=== PATIENT | female | born 1985 | race Caucasian/White ===

== ENCOUNTER 2016-10-07 16:41 | Emergency (ER) | payer OTHER ==
[2016-10-07 17:03] VITALS: BP 136/85; O2SAT 97
[2016-10-07 17:17] VITALS: TEMP 98.2
[2016-10-07] MEDS ORDERED: CLINDAMYCIN HCL CAP 150 MG CAP PO ONE (17:22)
--- NOTE | 2016-10-07 17:25 | ED.PDOC ---
History of Present Illness - General Chief Complaint: Skin/Abrasion/Tear Stated Complaint: Right 3rd digit fingertip with small abscess and red streaking up the arm Time Seen by Provider: 10/07/16 17:12 Source: patient, RN notes reviewed, Vital Signs reviewed Exam Limitations: no limitations - History of Present Illness Timing/Duration: 24 hours Severity: moderate Improving Factors: immobilization Worsening Factors: movement Associated Symptoms: other - denies fever/chills Allergies/Adverse Reactions: Allergies NO KNOWN ALLERGY Allergy (Verified 03/22/16 16:17) Home Medications: Ambulatory Orders Clindamycin HCl 300 mg PO QID #40 cap 10/07/16 Glyburide 2.5 mg PO DAILY 10/07/16 Glyburide 10 mg PO BEDTIME 10/07/16 Metformin HCl 1,750 mg PO DAILY 10/07/16 Metformin HCl 500 mg PO QAM 10/07/16 glyBURIDE [Diabeta] 5 mg PO QAM 10/07/16 Review of Systems - Review of Systems Constitutional: States: no symptoms reported EENTM: States: no symptoms reported Respiratory: States: no symptoms reported Cardiology: States: no symptoms reported Gastrointestinal/Abdominal: States: no symptoms reported Genitourinary: States: no symptoms reported Musculoskeletal: States: see HPI Skin: States: see HPI Neurological: States: no symptoms reported Endocrine: States: see HPI - Gestational Diabetes Hematologic/Lymphatic: States: no symptoms reported Past Medical History (General) - Patient Medical History Hx Seizures: No Hx Stroke: No Hx Asthma: No Hx of COPD: No Hx Cardiac Disorders: No Hx Congestive Heart Failure: No Hx Pacemaker: No Hx Hypertension: No Hx Diabetes: Yes Hx Gastroesophageal Reflux: No Hx Hepatitis C: No Hx MRSA: No Surgical History: other - Vaccination History Hx Influenza Vaccination: No Hx Pneumococcal Vaccination: No - Social History Hx Tobacco Use: Yes Hx Alcohol Use: No Hx Substance Use: No Hx Physical Abuse: No Hx Emotional Abuse: No - Female History Patient : Yes Family Medical History - Family History Mother Living Status: Cause of : liver disease - non-fatty liver Physical Exam - Physical Exam General Appearance: Alert, Comfortable, No apparent distress, Well Developed, Well Groomed, Well Hydrated, Well Nourished, Other - Eye Exam: bilateral normal Ears, Nose, Throat: hearing grossly normal, normal ENT inspection Neck: non-tender, full range of motion, supple, normal inspection Respiratory: no respiratory distress, no accessory muscle use Cardiovascular/Chest: normal peripheral pulses, regular rate, rhythm Gastrointestinal/Abdominal: non tender, soft Back Exam: normal inspection Extremity: normal range of motion, non-tender Neurologic: protection analyst II-XII nml as tested, no motor/sensory deficits, alert, normal mood/affect, oriented x 3 Skin Exam: other - small abscess with minimal surrounding erythema consistent with cellulitis and lymphangitic spread originating distal right 3rd digit medial aspect (fingertip) Lymphatic: other - lymphatic erythema from right 3rd digit spreading proximally to mid upper arm. Progress - Progress Progress: 10/07/16 17:27 Patient with signs and symptoms consistent with a small abscess of the right 3rd digit medial/distal aspect (fingertip) and lymphangitis associated with this. I suspect MRSA and will treat with Clindamycin, heat, and elevation for now. No fever and the abscess is too small to puncture at this time. Patient advised to f/u with OB provider if unimproved in 3 to 5 days or return to ER sooner if condition worsens. Departure - Departure Clinical Impression: Acute lymphangitis of right upper extremity, Cutaneous abscess of right hand Time of Disposition: 17:40 Disposition: Discharge to Home or Self Care Condition: Good Departure Forms: ED Discharge - Pt. Copy, Patient Portal Self Enrollment Instructions: DI for Lymphangitis-Adult Referrals: Tulio Elena MD [Primary Care Provider] - 1-2 Weeks Prescriptions: Clindamycin HCl 300 mg PO QID #40 cap Home Medications: Ambulatory Orders Clindamycin HCl 300 mg PO QID #40 cap 10/07/16 Glyburide 2.5 mg PO DAILY 10/07/16 Glyburide 10 mg PO BEDTIME 10/07/16 Metformin HCl 1,750 mg PO DAILY 10/07/16 Metformin HCl 500 mg PO QAM 10/07/16 glyBURIDE [Diabeta] 5 mg PO QAM 10/07/16 Additional Instructions: Warm compress and elevation of right finger/hand above the level of your heart for 10 minutes, 3 to 4 times a day. Take antibiotics as prescribed. Follow-up with OB if not improving in 3 to 5 days. Return to ER if condition worsens - fever, worse redness/swelling/pain.
== END 2016-10-07 17:37 | disposition home or self-care (01) ==
LOC: ER 16:41
DX: L02.511 Cutaneous abscess of right hand (principal); L03.123 Acute lymphangitis of right upper limb; E11.9 Type 2 diabetes mellitus without complications; Z87.891 Personal history of nicotine dependence

== ENCOUNTER → 2016-10-13 | Outpatient (CLI) | payer OTHER ==
--- NOTE | 2016-10-17 09:22 | RAD ---
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 Articular surfaces of the hand and visualized wrist are normal. There are no lytic or sclerotic lesions. There is no radiopaque foreign body. There is no subcutaneous gas. Impression: Negative exam of the right hand. Electronically signed by: Nate Beth MD 10/17/2016 9:23 AM CDT
== END | disposition home or self-care (01) ==
LOC: RAD 16:54
PROVIDERS: ATTEND Obstetrics & Gynecology
DX: M60.241 Foreign body granuloma of soft tissue, not elsewhere classified, right hand (principal)

== ENCOUNTER 2017-03-25 20:58 | Emergency (ER) | payer SELFPAY ==
[2017-03-25 21:37] VITALS: TEMP 98.5; O2SAT 97
--- NOTE | 2017-03-25 22:02 | RAD ---
EXAM DESCRIPTION: Foot,Left 3 Views CLINICAL HISTORY: left heel pain COMPARISON: None FINDINGS: 3 views were submitted. There is a small plantar calcaneal spur. No fracture or dislocation is identified. Bone marrow attenuation is unremarkable. No radiopaque foreign body is identified. IMPRESSION: No acute fracture or dislocation. Electronically signed by: Jw Finch 03/25/2017 10:01 PM [facility]
--- NOTE | 2017-03-25 22:27 | ED.PDOC ---
History of Present Illness - General Chief Complaint: Lower Extremity Injury Stated Complaint: left foot pain Time Seen by Provider: 03/25/17 21:52 Source: patient, RN notes reviewed, Vital Signs reviewed Exam Limitations: no limitations - History of Present Illness Initial Comments: Patient comes in with c/o L foot pain. Reports she tripped walking into work today and felt something pop in her left foot when she landed on it to catch herself. Pain worsened tonight when she took her shoe off. Pain in on the sole of her foot, heel and arch. Pain is worse with weight bearing. No numbness or tingling. Occurred: this afternoon Pain - Lower Extremity: moderate: Left Foot Method of Injury: other - tripped Improving Factors: rest Worsening Factors: movement Allergies/Adverse Reactions: Allergies NO KNOWN ALLERGY Allergy (Verified 03/22/16 16:17) Home Medications: Ambulatory Orders Clindamycin HCl 300 mg PO QID #40 cap 10/07/16 Glyburide 2.5 mg PO DAILY 10/07/16 Glyburide 10 mg PO BEDTIME 10/07/16 Metformin HCl 1,750 mg PO DAILY 10/07/16 Metformin HCl 500 mg PO QAM 10/07/16 glyBURIDE [Diabeta] 5 mg PO QAM 10/07/16 Review of Systems - Review of Systems Constitutional: States: no symptoms reported Respiratory: States: no symptoms reported Cardiology: States: no symptoms reported Musculoskeletal: States: see HPI Skin: States: no symptoms reported Neurological: States: no symptoms reported All other Systems: No Change from Baseline Past Medical History (General) - Patient Medical History Hx Seizures: No Hx Stroke: No Hx Asthma: No Hx of COPD: No Hx Cardiac Disorders: No Hx Congestive Heart Failure: No Hx Pacemaker: No Hx Hypertension: No Hx Diabetes: Yes Hx Gastroesophageal Reflux: No Hx Hepatitis C: No Hx MRSA: No - Vaccination History Hx Influenza Vaccination: No Hx Pneumococcal Vaccination: No - Social History Hx Tobacco Use: Yes Hx Alcohol Use: No Hx Substance Use: No Hx Physical Abuse: No Hx Emotional Abuse: No - Female History Patient : No Expected Date of Delivery:: 11/18/16 Family Medical History - Family History Mother Living Status: Cause of : liver disease - non-fatty liver Physical Exam - Physical Exam General Appearance: Alert, Comfortable, No apparent distress, Well Developed, Well Groomed, Well Hydrated, Well Nourished Cardiovascular/Respiratory: normal peripheral pulses Ankle: normal inspection, non-tender, no evidence of injury, normal ROM Foot: limited ROM - due to pain, soft tissue tenderness - L foot arch and heel, swelling - sole of foot Neuro/Tendon: normal sensation, normal motor functions, normal tendon functions , responds to pain, no evidence tendon injury Mental Status: alert, oriented x 3 Skin: normal color, warm/dry Comments: Vital Signs 03/25/17 21:34 Temperature 98.5 F Pulse Rate [ 92 H Right] Respiratory 18 Rate Blood Pressure 128/71 [Left Arm] O2 Sat by Pulse 97 Oximetry Progress - EKG/XRAY/CT XRAY: Foot: No fracture or dislocation per Radiologist Departure - Departure Clinical Impression: Sprain of left ankle or foot Ruptured plantar fascia Qualifiers: Encounter type: initial encounter Laterality: left Qualified Code(s): S96.812A - Strain of other specified muscles and tendons at ankle and foot level, left foot, initial encounter Time of Disposition: 22:30 Disposition: Discharge to Home or Self Care Condition: Fair Departure Forms: ED Discharge - Pt. Copy, Patient Portal Self Enrollment Instructions: DI for Foot Pain Diet: resume usual diet Referrals: Tulio Elena MD [Primary Care Provider] - 1-5 Days Zev Chaves MD [Active Staff] - 1-2 Weeks Home Medications: Ambulatory Orders Clindamycin HCl 300 mg PO QID #40 cap 10/07/16 Glyburide 2.5 mg PO DAILY 10/07/16 Glyburide 10 mg PO BEDTIME 10/07/16 Metformin HCl 1,750 mg PO DAILY 10/07/16 Metformin HCl 500 mg PO QAM 10/07/16 glyBURIDE [Diabeta] 5 mg PO QAM 10/07/16 Additional Instructions: Wear boot for at least 5-7 days
[2017-03-25 23:02] VITALS: BP 122/78
== END 2017-03-25 23:03 | disposition home or self-care (01) ==
LOC: ER 20:58
DX: S93.402A Sprain of unspecified ligament of left ankle, initial encounter (principal); S96.812A Strain of other specified muscles and tendons at ankle and foot level, left foot, initial encounter; E11.9 Type 2 diabetes mellitus without complications; Z87.891 Personal history of nicotine dependence; W18.40XA Slipping, tripping and stumbling without falling, unspecified, initial encounter; Y92.89 Other specified places as the place of occurrence of the external cause; Y99.0 Civilian activity done for income or pay

== ENCOUNTER 2017-10-13 08:16 | Emergency (ER) | payer OTHER ==
--- NOTE | 2017-10-13 08:32 | ED.PDOC ---
History of Present Illness - General Chief Complaint: Skin/Abrasion/Tear Stated Complaint: painful red blister finger /hand right Time Seen by Provider: 10/13/17 08:32 Source: patient Exam Limitations: no limitations - History of Present Illness Initial Comments: Reyna Wiggins 32 y/o female stated that had developed painful blisters right hand /middle finger 3 days ago,no fever or chillsHad same skin lesion last year which went away with acyclovir. Timing/Duration: other - see hpi Severity: moderate Location: hands - right Worsening Factors: nothing Associated Symptoms: blisters Allergies/Adverse Reactions: Allergies Levofloxacin [From Levaquin] Allergy (Verified 10/13/17 08:34) Other Causes eyes to swell Home Medications: Ambulatory Orders Metformin HCl 500 mg PO QAM 10/07/16 Acyclovir [Zovirax] 800 mg PO TID 7 Days #20 tab 10/13/17 Azithromycin [Zithromax Z-Carmine] 1 ea PO DAILY #1 pack 10/13/17 Review of Systems - Review of Systems Constitutional: States: no symptoms reported EENTM: States: no symptoms reported Skin: States: see HPI Neurological: States: no symptoms reported All other Systems: Reviewed and Negative, No Change from Baseline Past Medical History (General) - Patient Medical History Hx Seizures: No Hx Stroke: No Hx Asthma: No Hx of COPD: No Hx Cardiac Disorders: No Hx Congestive Heart Failure: No Hx Pacemaker: No Hx Hypertension: No Hx Diabetes: Yes Hx Gastroesophageal Reflux: No Hx Hepatitis C: No Hx MRSA: No Surgical History: other - btl - Vaccination History Hx Influenza Vaccination: No Hx Pneumococcal Vaccination: No - Social History Hx Tobacco Use: Yes Hx Alcohol Use: No Hx Substance Use: No Hx Physical Abuse: No Hx Emotional Abuse: No - Female History Patient : No Expected Date of Delivery:: 10/13/17 Family Medical History - Family History Mother Living Status: Cause of : liver disease - non-fatty liver Physical Exam - Physical Exam General Appearance: Alert, Comfortable, No apparent distress Eyes, Ears, Nose, Throat Exam: normal ENT inspection Neck: supple Cardiovascular/Chest: regular rate, rhythm, no murmur Respiratory: lungs clear, normal breath sounds Gastrointestinal/Abdominal: non tender, soft Back Exam: no CVA tenderness Extremity: no pedal edema, no calf tenderness Neurologic: alert, oriented x 3 Skin Exam: warm/dry, normal color Skin Problem Location: other - hand right middle finger right Skin Character: other - vesicular erythematous eruption right middle finger Progress - Progress Progress: 10/13/17 09:04 Vital Signs - 8 hr 10/13/17 08:27 Temperature 98.0 F Pulse Rate [ 87 Left Radial] Respiratory 20 Rate Blood Pressure 116/82 [Left Arm] O2 Sat by Pulse 98 Oximetry Departure - Departure 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 Copy, Patient Portal Self Enrollment Referrals: Tulio Elena MD [Primary Care Provider] - 1-2 Weeks Prescriptions: Acyclovir [Zovirax] 800 mg PO TID 7 Days #20 tab Azithromycin [Zithromax Z-Carmine] 1 ea PO DAILY #1 pack Home Medications: Ambulatory Orders Metformin HCl 500 mg PO QAM 10/07/16 Acyclovir [Zovirax] 800 mg PO TID 7 Days #20 tab 10/13/17 Azithromycin [Zithromax Z-Carmine] 1 ea PO DAILY #1 pack 10/13/17 Additional Instructions: Take Acyclovir 3 x a day;follow up with primary Md 16 Oct 2017 as needed
[2017-10-13 09:00] VITALS: TEMP 98
[2017-10-13] MEDS ORDERED: TETANUS,DIPHTHERIA,PERTUSSIS 1 EA SYG IM ONE (09:02)
[2017-10-13 09:20] VITALS: BP 113/84; O2SAT 96
== END 2017-10-13 09:23 | disposition home or self-care (01) ==
LOC: ER 08:16
DX: B00.9 Herpesviral infection, unspecified (principal); E11.9 Type 2 diabetes mellitus without complications; Z87.891 Personal history of nicotine dependence; Z23 Encounter for immunization

== ENCOUNTER 2018-07-20 18:42 | Emergency (ER) | payer SELFPAY ==
[2018-07-20] MEDS ORDERED: KETOROLAC TROMETHAMINE INJ 60 MG/2 ML VIAL IM ONE (19:01)
[2018-07-20] MEDS ORDERED: HYDROcodone 5MG/APAP 325MG 1 EA TAB PO ONE (19:01)
[2018-07-20 19:02] VITALS: TEMP 99.4
--- NOTE | 2018-07-20 19:04 | ED.PDOC ---
History of Present Illness - General Chief Complaint: General Stated Complaint: migraine x4 days post flu Time Seen by Provider: 07/20/18 19:00 Source: patient Exam Limitations: no limitations - History of Present Illness Initial Comments: SHE WAS RECENTLY DIAGNOSED WITH INFLUENZA A. NOW SHE IS HERE WITH AN OCCIPITAL HEADACHE AND A SEVERE SORE THROAT. DENIES ANY FEVER, OR VOMITING. DENIES VISUAL DISTURBANCES. Timing/Duration: other - FOUR DAYS Severity: moderate Improving Factors: nothing Worsening Factors: nothing Associated Symptoms: headaches, malaise, other - SORE THROAT Allergies/Adverse Reactions: Allergies Levofloxacin [From Levaquin] Allergy (Verified 10/13/17 08:34) Other Causes eyes to swell Home Medications: Ambulatory Orders Metformin HCl 500 mg PO QAM 10/07/16 Acetaminophen W/ Codeine [Tylenol W/ CODEINE #3] 1 ea PO Q6HRS #15 07/20/18 Review of Systems - Review of Systems Constitutional: States: malaise, weakness EENTM: States: throat pain Respiratory: States: no symptoms reported Cardiology: States: no symptoms reported Gastrointestinal/Abdominal: States: no symptoms reported Genitourinary: States: no symptoms reported Musculoskeletal: States: no symptoms reported Skin: States: no symptoms reported Neurological: States: headache Endocrine: States: no symptoms reported Hematologic/Lymphatic: States: no symptoms reported Past Medical History (General) - Patient Medical History Hx Seizures: No Hx Stroke: No Hx Asthma: No Hx of COPD: No Hx Cardiac Disorders: No Hx Congestive Heart Failure: No Hx Pacemaker: No Hx Hypertension: No Hx Diabetes: Yes Hx Gastroesophageal Reflux: No Hx Hepatitis C: No Hx MRSA: No Surgical History: other - Vaccination History Hx Influenza Vaccination: No Hx Pneumococcal Vaccination: No - Social History Hx Tobacco Use: Yes Hx Alcohol Use: No Hx Substance Use: No Hx Physical Abuse: No Hx Emotional Abuse: No - Female History Patient is a Female of Child Bearing Age (10 -59 yrs old): Yes Patient : No Expected Date of Delivery:: 10/13/17 Family Medical History - Family History Mother Living Status: Cause of : liver disease - non-fatty liver Physical Exam - Physical Exam General Appearance: Alert, Well Developed, Well Groomed, Well Hydrated Eye Exam: bilateral normal Ears, Nose, Throat: normal ENT inspection, pharyngeal erythema Neck: non-tender, full range of motion, supple Respiratory: chest non-tender, lungs clear, normal breath sounds Cardiovascular/Chest: regular rate, rhythm, no edema, no gallop, no JVD Peripheral Pulses: radial,right: 2+, radial,left: 2+ Gastrointestinal/Abdominal: normal bowel sounds, non tender, soft, no organomegaly, no pulsatile mass Rectal Exam: deferred Neurologic: alert, oriented x 3 Skin Exam: normal color Progress - Results/Orders Results/Orders: 07/20/18 19:03 STREP A SCREEN CULTURE Stat Laboratory Results Group A Strep Rapid Negative (NEGATIVE) 07/20/18 19:03 Departure - Departure Clinical Impression: Acute viral pharyngitis, Headache Time of Disposition: 19:49 Disposition: Discharge to Home or Self Care Condition: Good Departure Forms: ED Discharge - Pt. Copy, Patient Portal Self Enrollment Diet: resume usual diet Activity: increase activity as tolerated Referrals: Tulio Elena MD [Primary Care Provider] - 1-2 Weeks Prescriptions: Acetaminophen W/ Codeine [Tylenol W/ CODEINE #3] 1 ea PO Q6HRS #15 Home Medications: Ambulatory Orders Metformin HCl 500 mg PO QAM 10/07/16 Acetaminophen W/ Codeine [Tylenol W/ CODEINE #3] 1 ea PO Q6HRS #15 07/20/18
[2018-07-20 20:01] VITALS: BP 133/79; O2SAT 96
== END 2018-07-20 20:06 | disposition home or self-care (01) ==
LOC: ER 18:42
DX: R51 Headache (principal); J06.9 Acute upper respiratory infection, unspecified; E11.9 Type 2 diabetes mellitus without complications; Z87.891 Personal history of nicotine dependence; Z79.84 Long term (current) use of oral hypoglycemic drugs; Z88.1 Allergy status to other antibiotic agents
CPT/HCPCS: 87070; 87880; J1885

== ENCOUNTER 2019-10-17 10:34 | Emergency (ER) | payer SELFPAY ==
[2019-10-17] MEDS ORDERED: SODIUM CHLORIDE 0.9% (FLUSH) 10 ML SYG IV PRN (10:50)
[2019-10-17] MEDS ORDERED: ONDANSETRON INJ 4 MG/2 ML VIAL IV ONE (10:53)
[2019-10-17] MEDS ORDERED: KETOROLAC TROMETHAMINE INJ 30 MG/ML VIAL IV ONE (10:53)
--- NOTE | 2019-10-17 11:19 | ED.PDOC ---
History of Present Illness - General Chief Complaint: Problem Stated Complaint: spotting,discharge,low back pain Time Seen by Provider: 10/17/19 10:43 Source: patient, RN notes reviewed, Vital Signs reviewed - History of Present Illness Initial Comments: This is a 34-year-old female presenting to the emergency department with low back pain and pelvic pain onset 4 days ago. She reports some associated vomiting 2 days ago, but states this is completely disappeared. She also reports vaginal bleeding and vaginal discharge. 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 LMP 2 weeks ago. Denies possibility of . History of BTL. Allergies/Adverse Reactions: Allergies Levofloxacin [From Levaquin] Allergy (Verified 10/13/17 08:34) Other Causes eyes to swell Home Medications: Ambulatory Orders Acetaminophen W/ Codeine [Tylenol W/ CODEINE #3] 1 - 2 tablet PO Q6H PRN #20 10/17/19 Ondansetron Odt [Zofran ODT] 8 mg PO Q8H PRN #15 tab 10/17/19 RX: Doxycycline Hyclate 100 mg PO Q12H 14 Days #28 tab 10/17/19 Review of Systems - Review of Systems Constitutional: Denies: chills, fever EENTM: Denies: nose pain, nose congestion, throat pain Respiratory: Denies: cough, orthopnea, short of breath Cardiology: Denies: chest pain, edema, palpitations, syncope Gastrointestinal/Abdominal: States: abdominal pain, nausea, vomiting. Denies: constipation, diarrhea Genitourinary: States: see HPI, discharge. Denies: dysuria, frequency, hematuria Musculoskeletal: States: back pain. Denies: joint pain, joint swelling, neck pain Skin: Denies: lesions, rash Neurological: Denies: headache, numbness, paresthesia, weakness Endocrine: States: no symptoms reported Hematologic/Lymphatic: States: no symptoms reported Past Medical History (General) - Patient Medical History Hx Seizures: No Hx Stroke: No Hx Asthma: No Hx of COPD: No Hx Cardiac Disorders: No Hx Congestive Heart Failure: No Hx Pacemaker: No Hx Hypertension: No Hx Diabetes: Yes Hx Gastroesophageal Reflux: No Hx Hepatitis C: No Hx MRSA: No - Vaccination History Hx Influenza Vaccination: No Hx Pneumococcal Vaccination: No - Social History Hx Tobacco Use: Yes Hx Alcohol Use: No Hx Substance Use: No Hx Physical Abuse: No Hx Emotional Abuse: No - Female History Patient is a Female of Child Bearing Age (10 -59 yrs old): Yes Patient : No Expected Date of Delivery:: 10/13/17 Family Medical History - Family History Mother Living Status: Cause of : liver disease - non-fatty liver Physical Exam - Physical Exam General Appearance: Alert, Comfortable, Obese Eyes, Ears, Nose, Throat Exam: normal ENT inspection, pharynx normal Neck: full range of motion, supple, normal inspection Cardiovascular/Respiratory: regular rate, rhythm, no M/R/G, normal peripheral pulses, no JVD, normal breath sounds, no respiratory distress Gastrointestinal/Abdominal: non tender, soft, no organomegaly Pelvic Exam: external exam normal, no cerv. motion tender, no masses, discharge - Greenish, tender adnexa - Right Back Exam: normal inspection, no CVA tenderness, no vertebral tenderness Extremity: normal range of motion, non-tender, normal inspection Neurologic: no motor/sensory deficits, alert, normal mood/affect, oriented x 3 Skin Exam: normal color, warm/dry Progress - Progress Progress: 10/17/19 19:52 Late entry. Pain improved on recheck. Abdomen remains benign. Reviewed ultrasound/lab findings. Discussed my concern about PID given the presence of discharge, adnexal tenderness on exam. Discussed possibility of STI and need to abstain from sexual activity until antibiotics are completed. Will give Rocephin, doxycycline x2 weeks. Strict warnings given to return the emergency room for worsening pain, fever, intractable vomiting, or any other concerns. DDX: , ectopic, PID, TOA, ovarian cyst MDM: Patient with pelvic pain, greenish vaginal discharge, vaginal bleeding. Patient has adnexal tenderness on exam, ultrasound showed fibroids, without any other acute process. Suspect fibroids are the likely cause of her bleeding, may be a cause of her pain as well. Been given adnexal tenderness and discharge on pelvic exam, will treat for PID. Recommended follow-up with gynecology in 3 to 5 days. Strict warnings given to return the emergency room for worsening pain, fever, intractable vomiting, increased bleeding, dizziness/shortness of breath/syncope, or other concerns Travis Cameron DO [id number] - Results/Orders Results/Orders: EXAM DESCRIPTION: Pelvic,Non-OB: Ultrasound. CLINICAL HISTORY: 34 years Female pelvic pain, bleeding COMPARISON: Endovaginal pelvic ultrasound September 2013. OB ultrasound March 2016. TECHNIQUE: Endovaginal scanning. Saldivar-scale and Doppler modes. FINDINGS: Uterus 8.5 x 4.5 x 3.9 cm. 77.4 mL. Endometrium 5.7 mm.. Myometrium heterogeneous. Echogenic mass in the anterior fundus measuring 1.4 x 1.3 x 1.2 cm. Abutting the anterior endometrium. Second echogenic mass superior in the fundus, right side, measuring 1.5 x 1.1 x 0.8 cm. Uterus not retroverted. Cervix unremarkable. Cul-de-sac: No fluid. Right ovary 2.8 x 2.8 x 1.5 cm. 6 mL. Normal waveform and color Doppler vascularity. No follicles or cysts. No adnexal mass or free fluid. Left ovary 2.5 x 2.0 x 2.0 cm. 5.3 mL. Normal waveform and color Doppler vascularity. 1.6 cm simple follicles but no cysts. No adnexal mass or free fluid. IMPRESSION: 1. 2 fibroids in the uterus measuring 1.4 x 1.5 cm. Anterior fibroid is abutting the anterior endometrium. No fluid. Fibroids also seen on the prior study In 2013. No fluid in the cul-de-sac. Normal orientation of the uterus. 2. Bilateral ovaries normal size. 1.6 cm simple follicle left ovary with no cyst. Electronically signed by: Jw Mahoney MD 10/17/2019 12:08 PM Departure - Departure Clinical Impression: Pelvic inflammatory disease, Abnormal uterine bleeding Uterine fibroid Qualifiers: Uterine leiomyoma location: unspecified location Qualified Code(s): D25.9 - Leiomyoma of uterus, unspecified Disposition: Discharge to Home or Self Care Condition: Good Departure Forms: ED Discharge - Pt. Copy, Patient Portal Self Enrollment Instructions: Pelvic Inflammatory Disease, Uterine Fibroids Referrals: Tulio Elena MD [Primary Care Provider] - 1-5 Days Prescriptions: Acetaminophen W/ Codeine [Tylenol W/ CODEINE #3] 1 - 2 tablet PO Q6H PRN #20 PRN Reason: Pain RX: Doxycycline Hyclate 100 mg PO Q12H 14 Days #28 tab Ondansetron Odt [Zofran ODT] 8 mg PO Q8H PRN #15 tab PRN Reason: Nausea Home Medications: Ambulatory Orders Acetaminophen W/ Codeine [Tylenol W/ CODEINE #3] 1 - 2 tablet PO Q6H PRN #20 10/17/19 Ondansetron Odt [Zofran ODT] 8 mg PO Q8H PRN #15 tab 10/17/19 RX: Doxycycline Hyclate 100 mg PO Q12H 14 Days #28 tab 10/17/19 Additional Instructions: Return to the emergency room for worsening pain, fever, bleeding, dizziness/shortness of breath/loss of consciousness, or any other concerns. Follow-up with your PCP/technical support intern next week for recheck
[2019-10-17] MEDS ORDERED: METOCLOPRAMIDE HCL INJ 10 MG/2 ML VIAL IV ONE (11:23)
--- NOTE | 2019-10-17 12:10 | US ---
EXAM DESCRIPTION: Pelvic,Non-OB: Ultrasound. CLINICAL HISTORY: 34 years Female pelvic pain, bleeding COMPARISON: Endovaginal pelvic ultrasound September 2013. OB ultrasound March 2016. TECHNIQUE: Endovaginal scanning. Saldivar-scale and Doppler modes. FINDINGS: Uterus 8.5 x 4.5 x 3.9 cm. 77.4 mL. Endometrium 5.7 mm.. Myometrium heterogeneous. Echogenic mass in the anterior fundus measuring 1.4 x 1.3 x 1.2 cm. Abutting the anterior endometrium. Second echogenic mass superior in the fundus, right side, measuring 1.5 x 1.1 x 0.8 cm. Uterus not retroverted. Cervix unremarkable. Cul-de-sac: No fluid. Right ovary 2.8 x 2.8 x 1.5 cm. 6 mL. Normal waveform and color Doppler vascularity. No follicles or cysts. No adnexal mass or free fluid. Left ovary 2.5 x 2.0 x 2.0 cm. 5.3 mL. Normal waveform and color Doppler vascularity. 1.6 cm simple follicles but no cysts. No adnexal mass or free fluid. IMPRESSION: 1. 2 fibroids in the uterus measuring 1.4 x 1.5 cm. Anterior fibroid is abutting the anterior endometrium. No fluid. Fibroids also seen on the prior study In 2013. No fluid in the cul-de-sac. Normal orientation of the uterus. 2. Bilateral ovaries normal size. 1.6 cm simple follicle left ovary with no cyst. Electronically signed by: Jw Mahoney MD 10/17/2019 12:08 PM CDT
[2019-10-17] MEDS ORDERED: cefTRIAXone SODIUM 250 MG in SODIUM CHL 0.9% 50ML MIN-BAG+ 50 ML IVPB ONE (13:08)
[2019-10-17] MEDS ORDERED: HYDROcodone 10MG/APAP 325MG 1 EA TAB PO ONE (13:08)
[2019-10-17] MEDS ORDERED: DOXYCYCLINE HYCLATE CAP 100 MG CAP PO ONE (13:08)
[2019-10-17 14:12] VITALS: TEMP 97.8; O2SAT 100
[2019-10-17 14:13] VITALS: BP 138/86
== END 2019-10-17 14:10 | disposition home or self-care (01) ==
LOC: ER 10:34
DX: N73.9 Female pelvic inflammatory disease, unspecified (principal); N93.8 Other specified abnormal uterine and vaginal bleeding; D25.9 Leiomyoma of uterus, unspecified; E11.9 Type 2 diabetes mellitus without complications; F17.200 Nicotine dependence, unspecified, uncomplicated
CPT/HCPCS: 36415; 76856; 80053; 81001; 81025; 85025; 87210; 87491; 87591; J0696; J1885; J2405; J7050